=== PATIENT | male | born 1970 | race Caucasian/White ===

== ENCOUNTER 2020-03-14 16:27 | Emergency (ER) | payer BC ==
[~2020-03-14] VITALS: Ht 185.4 cm; Wt 74.5 kg
[2020-03-14] MEDS ORDERED: ASPIRIN 81 MG CHEW TABLET PO ONE (17:00)
[2020-03-14 17:27] LABS: BASO % 0.4 % (0.0-1.0); EOS % 0.4 % (0.0-3.0); HEMATOCRIT 44.5 % (42.0-52.0); HEMOGLOBIN 14.7 g/dl (13.5-17.5); LYMPH # 2.9 10^3/uL (1.5-5.0); LYMPH % 41.7 % (24.0-44.0); MEAN CORPUSCULAR HEMOGLOBIN 30.6 pg (27.0-33.0); MEAN CORPUSCULAR VOLUME 92.7 fl (80.0-96.0); MONO # 0.4 10^3/uL (0.0-0.8); MONO % 6.3 % (0.0-5.0); NEUTROPHILS # 3.5 10^3/uL (1.5-8.5); NEUTROPHILS % 50.9 % (36.0-66.0); PLATELET COUNT, AUTOMATED 241 10^3/uL (150-450); WHITE BLOOD COUNT 6.8 10^3/uL (4.0-10.0)
--- NOTE | 2020-03-14 17:44 | REP ---
INDICATION: CHEST PAIN. COMPARISON: None. TECHNIQUE: The costophrenic angles have not been included on the radiograph. FINDINGS: The technique utilized in obtaining the radiograph has magnified the cardiac silhouette and accentuated the interstitial markings. The superior mediastinal structures are midline. The cardiac silhouette is unremarkable in size, shape, and position. The diaphragmatic surfaces of the lungs are regular, and the costophrenic angles are clear. The pulmonary slade are clear. The imaged osseous structures are intact. IMPRESSION: There is no acute cardiopulmonary disease. <Electronically signed by Sukh Gustafson > 03/14/20 [id number]
[2020-03-14 17:53] LABS: ALBUMIN 4.2 GM/DL (3.2-5.2); ALT/SGPT 18 U/L (12-78); BILIRUBIN,DIRECT 0.2 MG/DL (0.0-0.2); BILIRUBIN,TOTAL 0.6 MG/DL (0.2-1.0); BLOOD UREA NITROGEN 9 MG/DL (7-18); CALCIUM LEVEL 8.8 MG/DL (8.5-10.1); CARBON DIOXIDE LEVEL 29 MEQ/L (21-32); CHLORIDE LEVEL 106 MEQ/L (98-107); CK-MB VALUE MASS < 1.0 NG/ML (<3.6); CPK CREATINE PHOSPHOKINASE 92 U/L (39-308); CREATININE FOR GFR 0.89 MG/DL (0.70-1.30); GLOMERULAR FILTRATION RATE > 60.0 (>56); GLUCOSE, FASTING 93 MG/DL (70-100); LIPASE 56 U/L (73-393); MB/CK RELATIVE INDEX 1.09 (< OR =4); NT-PRO BNP 22 PG/ML (<125); POTASSIUM SERUM 3.8 MEQ/L (3.5-5.1); SODIUM LEVEL 141 MEQ/L (136-145); TOTAL PROTEIN 6.9 GM/DL (6.4-8.2); TROPONIN I < 0.02 NG/ML (< 0.10)
[2020-03-14] MEDS ORDERED: ISOVUE-370 76% 100ML VIAL As Ordered ONE (18:18)
--- NOTE | 2020-03-14 19:13 | REPVR ---
PROCEDURE INFORMATION: Exam: CT Angiography Chest With Contrast Exam date and time: 03/14/2020 6:23 PM Age: 49 years old Clinical indication: Other: Left sided chest pain; SOB; R/O pe TECHNIQUE: Imaging protocol: Computed tomographic angiography of the chest with intravenous contrast. 3D rendering (Not supervised by radiologist): MIP and/or 3D reconstructed images were created by the technologist. Radiation optimization: All CT scans at this facility use at least one of these dose optimization techniques: automated exposure control; mA and/or kV adjustment per patient size (includes targeted exams where dose is matched to clinical indication); or iterative reconstruction. Contrast material: ISOVUE 370; Contrast volume: 75 ml; Contrast route: INTRAVENOUS (IV); COMPARISON: CR PORTABLE CHEST X-RAY 03/14/2020 5:06 PM FINDINGS: Pulmonary arteries: No CT evidence of acute pulmonary embolism. Aorta: No CT evidence of acute thoracic aortic dissection, thoracic aneurysm or acute intramural thoracic aortic hematoma. Lungs: Bilateral pulmonary hyperinflation is present, secondary to centrilobular emphysema in both lungs. There is a small area of mixed ground-glass densities and patchy airspace consolidation present in the medial superior segment of the left lower lobe, seen on images 112 through 144 of series 501, suggestive of an acute pneumonia/pneumonitis, associated with numerous subsegmental atelectases in the left lung base. Pleural space: Unremarkable. No pneumothorax. No pleural effusion. Heart: The heart size is normal. There is mild retrograde IV contrast reflux from the right atrium into the IVC and hepatic veins. This can be a normal variant due to the high volume IV contrast injection rates typically employed for a CT pulmonary angiogram, however, it can also be seen in right heart strain and various types of right heart disease, such as pulmonary hypertension, tricuspid regurgitation and right ventricular systolic dysfunction. Lymph nodes: Unremarkable. No enlarged lymph nodes. 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 Soft tissues: Unremarkable. IMPRESSION: 1. Bilateral pulmonary hyperinflation is present, secondary to centrilobular emphysema in both lungs. There is a small area of mixed ground-glass densities and patchy airspace consolidation present in the medial superior segment of the left lower lobe, seen on images 112 through 144 of series 501, suggestive of an acute pneumonia/pneumonitis, associated with numerous subsegmental atelectases in the left lung base. 2. No CT evidence of acute pulmonary embolism. 3. The heart size is normal. There is mild retrograde IV contrast reflux from the right atrium into the IVC and hepatic veins. This can be a normal variant due to the high volume IV contrast injection rates typically employed for a CT pulmonary angiogram, however, it can also be seen in right heart strain and various types of right heart disease, such as pulmonary hypertension, tricuspid regurgitation and right ventricular systolic dysfunction. 4. No CT evidence of acute thoracic aortic dissection, thoracic aneurysm or acute intramural thoracic aortic hematoma. 5. 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 Electronically signed by: Perry Emerson On 03/14/2020 19:14:03 PM
--- NOTE | 2020-03-14 19:22 | ECGEPIP ---
[facility] - ED Test Date: 2020-03-14 Pat Name: SAPPHIRE POWER Department: Room: - Gender: Male [employer]: MC : 1970 Requested By: Jada Henderson Order Number: [id number] Reading MD: Barry Booker Measurements Intervals Barron Rate: 83 P: 70 DC: 120 QRS: 87 QRSD: 94 T: 73 QT: 361 QTc: 424 Interpretive Statements SINUS RHYTHM NSTTW ABNORMALITY(S) NO PRIORS FOR COMPARISON Electronically Signed on 03-14-2020 19:22:24 EST by Barry Booker
[2020-03-14] MEDS ORDERED: DOXY100C37 PO (19:28)
[2020-03-14] MEDS ORDERED: DOXYCYCLINE HYCLATE 100MG TABLET PO ONE (19:30)
[2020-03-14 20:00] VITALS: BP 133/87
--- NOTE | 2020-03-16 12:17 | ED PDOC ---
Post-Departure Follow-Up certified letter sent to pt re formal read of cta chest. pt needs fu..no pcp lis rashad. obtain pcp aand fax and refer. if no pcp refer to [facility] and fax for fu Antoine Mendoza MD Mar 16, 2020 12:17
== END 2020-03-14 20:07 | disposition home or self-care (01) ==
LOC: M ED 16:27
DX: J18.9 Pneumonia, unspecified organism (principal); I73.9 Peripheral vascular disease, unspecified; R01.1 Cardiac murmur, unspecified; F17.200 Nicotine dependence, unspecified, uncomplicated
CPT/HCPCS: 36415; 71045; 71275; 80048; 80076; 82550; 82553; 83690; 83880; 84484; 85025; 85379; 93005; 93041; 94760; 99285; Q9967